=== PATIENT | female | born 1940 | race Hispanic/Latino ===

== ENCOUNTER 2017-04-16 08:46 | Emergency (ER) | payer MEDICARE ==
--- NOTE | 2017-04-16 10:41 | Cat Scan Report ---
CT scan of head without IV contrast: History: Fall. Findings: Ventricles are normal in size and midline in location. No evidence of acute ischemic abnormal hemorrhage or mass. No extra-axial fluid collection. Normal brainstem and cerebellum. Impression: No acute intracranial abnormality. No evidence of acute fracture.
--- NOTE | 2017-04-16 10:42 | Cat Scan Report ---
CT scan cervical spine: History: Fall. Findings: The odontoid process and lateral masses and occipital condyles appears normal. No fracture. Normal prevertebral soft tissue. Normal height of vertebral bodies. Decrease in height of C4-C5 and C5-C6 being more pronounced at C5-C6. Sclerotic articular surfaces with cervical spondylosis. Normal prevertebral soft tissue. No acute fracture. Impression: Cervical spondylosis. No evidence of acute fracture.
--- NOTE | 2017-04-16 11:14 | XRay Report ---
Right inferior scrotum History: Fall/right hand pain. 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 Arthritic changes at the first and second carpal-metacarpal joint. No fracture. No periosteal reaction or lytic lesion. Impression: Arthritic changes right tendon. No fracture.
[2017-04-16 13:08] VITALS: BP 148/71
--- NOTE | 2017-04-16 13:17 | Emergency Department Report ---
ED General Adult HPI - General Chief complaint: Head Injury Stated complaint: FELL HIT HEAD YESTERDAY Time Seen by Provider: 04/16/17 10:36 Source: patient Mode of arrival: Ambulatory Limitations: No Limitations - History of Present Illness Initial comments: Patient states that she was getting out of her car yesterday and slipped falling on an outstretched hand and hitting her forehead. She was feeling fine and having no difficulty in driving prior to the event. She complains of soreness of her hand and her face. She states that she came to the emergency room because she was concerned that she knocked on a neighbor's door rather than her own. She drove herself to the emergency department. She was wondering if this confusion was the result of her head trauma. She had no loss of consciousness, no neurological change otherwise no difficulty in walking or driving. No nausea or vomiting. She did complain of some mild neck soreness. -: Gradual Location: face, right, upper extremity Severity scale (0 -10): 0 Consistency: now resolved Improves with: none Worsens with: none Associated Symptoms: denies other symptoms Treatments Prior to Arrival: none - Related Data Home Medications Medication Instructions Recorded Confirmed Last Taken Aspirin [Aspirin BABY CHEW TAB] 1 tab PO DAILY 05/18/13 05/18/13 05/21/13 Labetalol [Normodyne TAB] 300 mg PO DAILY 05/18/13 05/21/13 05/21/13 Lisinopril/Hydrochlorothiazide 1 tab PO DAILY 05/18/13 05/18/13 05/21/13 [Zestoretic 20-12.5 mg] Metformin HCl [metFORMIN ER] 1,000 mg PO BID 05/18/13 05/21/13 05/21/13 Simvastatin 1 tab PO DAILY 05/18/13 05/18/13 05/21/13 amLODIPine [Norvasc] 1 tab PO DAILY 05/18/13 05/21/13 05/21/13 glipiZIDE [glipiZIDE XL] 1 tab PO DAILY 05/18/13 05/18/13 05/21/13 Allergies Allergy/AdvReac Type Severity Reaction Status Date / Time codeine Allergy Mild RINGING IN Verified 04/16/17 08:52 EARS Penicillins Allergy Mild CAUSES Verified 04/16/17 08:52 VISION PROBLEMS ED Review of Systems ROS: Stated complaint: FELL HIT HEAD YESTERDAY Other details as noted in HPI Constitutional: denies: chills, fever Eyes: denies: eye pain, eye discharge, vision change ENT: denies: ear pain, throat pain Respiratory: denies: cough, shortness of breath, wheezing Cardiovascular: denies: chest pain, palpitations Endocrine: no symptoms reported Gastrointestinal: denies: abdominal pain, nausea, diarrhea Genitourinary: denies: urgency, dysuria, discharge Musculoskeletal: as per HPI. denies: back pain, joint swelling, arthralgia Skin: denies: rash, lesions Neurological: as per HPI. denies: headache, weakness, paresthesias Psychiatric: denies: anxiety, depression Hematological/Lymphatic: denies: easy bleeding, easy bruising ED Past Medical Hx - Past Medical History Hx Hypertension: Yes Hx Diabetes: Yes - Surgical History Hx Breast Surgery: Yes (BREAST BX 2006) - Social History Smoking Status: Never Smoker Substance Use Type: None - Medications Home Medications: Home Medications Medication Instructions Recorded Confirmed Last Taken Type Aspirin [Aspirin BABY CHEW TAB] 1 tab PO DAILY 05/18/13 05/18/13 05/21/13 History Labetalol [Normodyne TAB] 300 mg PO DAILY 05/18/13 05/21/13 05/21/13 History Lisinopril/Hydrochlorothiazide 1 tab PO DAILY 05/18/13 05/18/13 05/21/13 History [Zestoretic 20-12.5 mg] Metformin HCl [metFORMIN ER] 1,000 mg PO BID 05/18/13 05/21/13 05/21/13 History Simvastatin 1 tab PO DAILY 05/18/13 05/18/13 05/21/13 History amLODIPine [Norvasc] 1 tab PO DAILY 05/18/13 05/21/13 05/21/13 History glipiZIDE [glipiZIDE XL] 1 tab PO DAILY 05/18/13 05/18/13 05/21/13 History ED Physical Exam - General Limitations: No Limitations General appearance: alert, in no apparent distress - Head Head exam: Present: normocephalic - Eye Eye exam: Present: normal appearance, PERRL, EOMI, other (malar soft tissue swelling without deformity). Absent: scleral icterus - ENT ENT exam: Present: mucous membranes moist, other - Neck Neck exam: Present: normal inspection. Absent: tenderness, meningismus - Respiratory Respiratory exam: Present: normal lung sounds bilaterally. Absent: respiratory distress - Cardiovascular Cardiovascular Exam: Present: regular rate, normal rhythm. Absent: systolic murmur, diastolic murmur, rubs, gallop - GI/Abdominal GI/Abdominal exam: Present: soft, normal bowel sounds. Absent: distended, tenderness, guarding, rebound, rigid - Extremities Exam Extremities exam: Present: normal inspection, normal capillary refill, other ( soft tissue swelling right dorsum of the forearm noted for many). Absent: pedal edema, joint swelling, calf tenderness - Back Exam Back exam: Present: normal inspection. Absent: CVA tenderness (R), CVA tenderness (L), muscle spasm, paraspinal tenderness, vertebral tenderness - Neurological Exam Neurological exam: Present: alert, oriented X3 - Psychiatric Psychiatric exam: Present: normal affect, normal mood - Skin Skin exam: Present: warm, dry, intact, normal color. Absent: rash ED Course Vital Signs 04/16/17 04/16/17 04/16/17 08:52 10:15 13:07 Temperature 97.7 F Pulse Rate 68 64 Respiratory 18 18 Rate Blood Pressure 158/76 Blood Pressure 148/71 [Left] O2 Sat by Pulse 98 98 100 Oximetry - Reevaluation(s) Reevaluation #1: Patient was observed. She was completely functional and able to care for self. She stated that she was able to drive home. She was neurologically intact. Her scans were reassuring. Her hand x-ray had no fracture. Her glucose was 170. She was concerned that that was elevated but had just eaten. She was referred to her family physician for further care and evaluation. She was discharged in stable condition. She had no trouble with her mental status whatsoever. 04/16/17 13:19 04/16/17 13:20 Critical care attestation.: If time is entered above; I have spent that time in minutes in the direct care of this critically ill patient, excluding procedure time. ED Disposition Clinical Impression: Facial contusion Qualifiers: Encounter type: initial encounter Qualified Code(s): S00.83XA - Contusion of other part of head, initial encounter Contusion of hand, left Qualifiers: Encounter type: initial encounter Qualified Code(s): S60.222A - Contusion of left hand, initial encounter Minor head injury Qualifiers: Encounter type: initial encounter Qualified Code(s): S00.90XA - Unspecified superficial injury of unspecified part of head, initial encounter Disposition: DC-01 TO HOME OR SELFCARE Is pt being admited?: No Does the pt Need Aspirin: No Condition: Stable Instructions: Contusion in Adults (ED), Minor Head Injury (ED) Additional Instructions: Return any acute change or problem. Referrals: PRIMARY CARE,MD [Primary Care Provider] - 2-3 Days Time of Disposition: 13:10
== END 2017-04-16 13:08 | disposition home or self-care (01) ==
LOC: ED 08:46
DX: S00.83XA Contusion of other part of head, initial encounter (principal); S60.222A Contusion of left hand, initial encounter; E11.9 Type 2 diabetes mellitus without complications; I10 Essential (primary) hypertension; Z79.84 Long term (current) use of oral hypoglycemic drugs; Z88.6 Allergy status to analgesic agent; Z88.0 Allergy status to penicillin; W01.0XXA Fall on same level from slipping, tripping and stumbling without subsequent striking against object, initial encounter; Y93.89 Activity, other specified; Y92.89 Other specified places as the place of occurrence of the external cause; Y99.8 Other external cause status
CPT/HCPCS: 70450; 72125; 82962